=== PATIENT | female | born 1960 | race Two or more races ===

== ENCOUNTER → 2025-03-29 | Emergency (ER) | payer OTHER ==
[~2025-03-29] VITALS: Ht 167.6 cm; Wt 89.4 kg
[~2025-03-29] MED LIST: 0.9 % SODIUM CHLORIDE 1,000 ML IV SCH; CEFTRIAXONE SODIUM 1,000 MG in DEXTROSE 5 % IN WATER 100 ML IV ONE; MAALOX ADVANCE355 ML PO; OCTREOTIDE ACETATE 0.05MG/ML (50MCG/ML) AMPUL IV ONE; OCTREOTIDE ACETATE 1,250 MCG in 0.9 % SODIUM CHLORIDE 250 ML IV SCH; PANTOPRAZOLE SODIUM 40 MG/VIAL VIAL IV ONE; PANTOPRAZOLE SODIUM 80 MG in 0.9 % SODIUM CHLORIDE 100 ML IV SCH; PEPCID AC10 MG PO
[2025-03-29 19:37] LABS: BASO % 0.4 % (0.1-1.2); EOS # 0.17 (0.04-0.54); EOS % 3.1 % (0.7-7.0); LYMPH # 1.09 (1.18-3.74); LYMPH % 19.6 % (19.3-53.1); MEAN PLATELET VOLUME 10.20 fl (9.4-12.4); MONO # 0.25 (0.24-0.82); MONO % 4.5 % (4.7-12.5); NEUT # 4.00 (1.56-6.13); NEUT % 72.0 % (34.0-71.1); RED CELL DISTRIBUTION WIDTH 12.3 % (11.6-14.4)
[2025-03-29 19:56] LABS: INR 1.04
[2025-03-29 20:06] LABS: ALT/SGPT 14.0 U/L (12-78); AST/SGOT 19.0 U/L (15-37); BILIRUBIN TOTAL 0.3 mg/dL (0.3-1.2); BUN CREA RATIO 43.0 (7.0-25.0); CREATININE SERUM 0.7 mg/dL (0.55-1.02); GFR 84.79; GLOBULINA 2.6 G/DL (2.4-3.5); GLUCOSE FASTING 105.0 mg/dL (65-100); OSMOLALITY SERUM 292.0 MOSM/KG (275-295)
[2025-03-29 21:46] LABS: URINE APPEARANCE Clear; URINE BACTERIA 162.3 uL (0.0-1933); URINE BILIRRUBIN Negative (NEGATIVE); URINE BLOOD Negative; URINE COLOR Yellow; URINE EPITHELIAL CELLS 12.7 uL (0.0-38.8); URINE GLUCOSE Negative (NEGATIVE); URINE KETONE 15 (NEGATIVE); URINE LEUKOCYTE Small; URINE NITRATE Negative; URINE PROTEIN Negative (NEGATIVE); URINE UROBILINOGEN 0.2 E.U./dl; URINE WBC 66.0 uL (0.0-23.2)
[2025-03-29 21:54] LABS: URINE CAST 0.14 uL (0.0-1.40); URINE RBC 1.4 uL (0.0-20.8)
[2025-03-30 06:18] LABS: BASO % 0.6 % (0.1-1.2); EOS # 0.21 (0.04-0.54); EOS % 4.1 % (0.7-7.0); LYMPH # 1.15 (1.18-3.74); LYMPH % 22.5 % (19.3-53.1); MEAN PLATELET VOLUME 10.40 fl (9.4-12.4); MONO # 0.34 (0.24-0.82); MONO % 6.7 % (4.7-12.5); NEUT # 3.35 (1.56-6.13); NEUT % 65.7 % (34.0-71.1); RED CELL DISTRIBUTION WIDTH 12.5 % (11.6-14.4)
== END | disposition left against medical advice (07) ==
LOC: ER 16:22
PROVIDERS: General Practice
DX: K92.2 Gastrointestinal hemorrhage, unspecified (principal); K92.1 Melena; K21.9 Gastro-esophageal reflux disease without esophagitis; Z88.8 Allergy status to other drugs, medicaments and biological substances
CPT/HCPCS: 36415; 74177; 93005; 96365; 96366; 99284; J7030; Q9965